=== PATIENT | female | born 2005 | race Two or more races ===

== ENCOUNTER 2025-05-13 14:56 | Emergency (ER) | payer MEDICAID ==
[~2025-05-13] VITALS: Ht 149.9 cm; Wt 39.0 kg
[2025-05-13 15:27] VITALS: BP 116/86; TEMP 97.9; O2SAT 98
== END 2025-05-13 15:27 | disposition left against medical advice (07) ==
LOC: ER 15:04
DX: R10.9 Unspecified abdominal pain (principal); Z53.21 Procedure and treatment not carried out due to patient leaving prior to being seen by health care provider